=== PATIENT | female | born 2000 | race Native Hawaiian/Other Pacific Islander ===

== ENCOUNTER 2022-12-10 09:27 | Outpatient (CLI) | payer OTHER ==
--- NOTE | 2022-12-10 19:54 | XRAY Report ---
PROCEDURE: Foot 3 View LT INDICATIONS: PAIN IN LEFT FOOT TECHNIQUE: 3 views of the foot were acquired. COMPARISON: None. FINDINGS: Bones: Fifth metatarsal base fracture. Minimal displacement. No dislocations. No suspicious bony le sions. Soft tissues: No suspicious soft tissue calcifications or masses. IMPRESSION: Fifth metatarsal base fracture. Reviewed by: Luis Felipe Severino MD on 12/10/2022 7:52 PM PDT Approved by: Luis Felipe Severino MD on 12/10/2022 7:52 PM PDT Station ID: [id number]
== END 2022-12-10 09:28 | disposition home or self-care (01) ==
LOC: DI 09:27
PROVIDERS: ATTEND Physician Assistant
DX: S92.352A Displaced fracture of fifth metatarsal bone, left foot, initial encounter for closed fracture (principal)

== ENCOUNTER 2022-12-16 08:00 | Outpatient (CLI) | payer OTHER ==
--- NOTE | 2022-12-16 13:04 | XRAY Report ---
PROCEDURE: Foot 3 View LT INDICATIONS: LEFT FOOT PAIN TECHNIQUE: 3 views of the foot were acquired. COMPARISON: X-ray foot 12/10/2022 FINDINGS: Bones: Mildly displaced fracture at the base of the fifth metatarsal, with questionably slightly inc reased appearance of fracture diastases. Soft tissues: No suspicious soft tissue calcifications or masses. IMPRESSION: Mildly displaced fifth metatarsal base fracture with questionable increased fracture diastases. Reviewed by: Lucinda Hanson MD on 12/16/2022 1:03 PM PDT Approved by: Lucinda Hanson MD on 12/16/2022 1:03 PM PDT Station ID: [id number]
== END 2022-12-16 23:59 | disposition home or self-care (01) ==
LOC: DI.WOS 08:00
PROVIDERS: ATTEND Orthopaedic Surgery
DX: S92.352A Displaced fracture of fifth metatarsal bone, left foot, initial encounter for closed fracture (principal)

== ENCOUNTER 2023-02-10 08:00 | Outpatient (CLI) | payer OTHER ==
--- NOTE | 2023-02-10 12:46 | XRAY Report ---
PROCEDURE: Foot 3 View LT INDICATIONS: LEFT 5TH MT FRACTURE TECHNIQUE: 3 weightbearing views of the foot were acquired. COMPARISON: None. FINDINGS: Bones: Redemonstration of mildly displaced transverse fracture involving the base of the left fifth metatarsal. No significant interval change in alignment. However, there appears to be possible early cortication of the fracture fragment. Hallux valgus angulation of the great toe. Normal calcaneal pit ch angle. No suspicious bony lesions. Soft tissues: No suspicious soft tissue calcifications or masses. IMPRESSION: Stable alignment of mildly displaced base of left fifth metatarsal fracture with suggestion of possib le early margin cortication of the fracture fragment. Reviewed by: Joe Cabrera MD on 02/10/2023 11:45 AM COR[facility] Approved by: Joe Cabrera MD on 02/10/2023 11:45 AM CORNELIO Station ID: [id number]
== END 2023-02-10 23:59 | disposition home or self-care (01) ==
LOC: DI.WOS 08:00
PROVIDERS: ATTEND Orthopaedic Surgery
DX: S92.352D Displaced fracture of fifth metatarsal bone, left foot, subsequent encounter for fracture with routine healing (principal)

== ENCOUNTER 2023-04-04 08:00 | Outpatient (CLI) | payer OTHER ==
[2023-04-04 22:24] LABS: CHLAMYDIA TRACHOMATIS DNA NEGATIVE (NEGATIVE); NEISSERIA GONORRHOEAE DNA NEGATIVE (NEGATIVE); TRICHOMONAS VAGINALIS DNA NEGATIVE (NEGATIVE)
== END 2023-04-04 23:59 | disposition home or self-care (01) ==
LOC: LAB.WC 08:00
PROVIDERS: ATTEND Nurse Practitioner
DX: Z11.3 Encounter for screening for infections with a predominantly sexual mode of transmission (principal)
CPT/HCPCS: 87491; 87591; 87661